=== PATIENT | female | born 1995 | race African-American/Black ===

== ENCOUNTER 2024-07-21 21:59 | Emergency (ER) | payer MEDICAID, OTHER ==
[~2024-07-21] VITALS: Ht 147.3 cm; Wt 40.0 kg
[2024-07-21 22:14] VITALS: O2SAT 97
[2024-07-21] MEDS: MORPHINE SULFATE 4 MG/ML INJ (FOR IV/IM USE) IV STA (22:35)
[2024-07-21] MEDS: ONDANSETRON HCL 4MG/2ML INJ IV STA (22:35)
[2024-07-21] MEDS: SODIUM CHLORIDE 0.9% 1,000 ML IV ONE (22:35)
[2024-07-21 22:44] LABS: BASOPHILS % 0.8 % (0.0-2.0); EOSINOPHILS % 3.6 % (0.0-5.0); HEMATOCRIT. 31.6 % (36.0-48.0); HEMOGLOBIN. 10.9 g/dL (12.0-16.0); MEAN CORPUSCULAR HEMOGLOBIN 28.5 pg (28.0-32.0); MEAN CORPUSCULAR HGB CONC 34.5 g/dL (31.0-37.0); MEAN CORPUSCULAR VOLUME 82.4 fL (81.0-99.0); MEAN PLATELET VOLUME 8.9 fl (7.4-10.4); MONOCYTES % 8.3 % (2.0-8.0); NEUTROPHILS % 33.3 % (40.0-76.0); PLATELET 296 x1000/uL (130-400); RED BLOOD CELL COUNT 3.84 mill/uL (4.2-5.4); RED CELL DISTRIBUTION WIDTH 14.1 % (11.6-14.6); WHITE BLOOD COUNT 4.3 x1000/uL (4.5-11.0)
[2024-07-21 22:53] LABS: PROTHROMBIN TIME 11.2 sec (9.6-11.0)
[2024-07-21 22:54] LABS: CHLORIDE 110 mEq/L (98-107); POTASSIUM 3.7 mEq/L (3.5-5.1); SODIUM 142 mEq/L (136-145)
[2024-07-21 22:55] LABS: CALCIUM 9.3 mg/dL (8.7-10.4); CARBON DIOXIDE 24 mEq/L (21-32)
[2024-07-21 23:00] LABS: CREATININE 0.7 mg/dL (0.6-1.0); GLUCOSE 98 mg/dL (70-105); UREA NITROGEN BLOOD 10 mg/dL (9-23)
[2024-07-22 02:12] VITALS: BP 110/76; PULSE 66; RESP 18; TEMP 36.78072; O2SAT 100
[2024-07-22] MEDS ORDERED: IOHEXOL-350 100 ML BOTTLE ONE (03:23)
== END 2024-07-22 02:38 | disposition home or self-care (01) ==
LOC: ER 21:59
DX: R51.9 Headache, unspecified (principal); Z86.79 Personal history of other diseases of the circulatory system; Z86.73 Personal history of transient ischemic attack (TIA), and cerebral infarction without residual deficits
CPT/HCPCS: 80048; 85025; 85610; 36415; 96361; 96374; 96375; 99285; 70496; 70498; 70450; J2405; J2270; J7030; Z7610; Q9967